=== PATIENT | female | born 1940 | race Caucasian/White ===

== ENCOUNTER 2017-08-30 09:46 | Observation (INO) | payer OTHER, BC ==
[~2017-08-30] VITALS: Ht 154.9 cm; Wt 58.7 kg
[~2017-08-30 09:46] MED LIST: ATENOLOL100 MG PO; CALCIUM 600 +1 EAC4 PO; CLARITIN,ALAVAR10 MG PO; FOLIC ACID1 MG PO; HYDROCHLOROTHIA25 MG PO; KLOR-CON 1010 ME1 PO; LEFLUNOMIDE10 MG PO; LEVOTHYROXINE25 MCG PO; METHOTREXATE2.5 MG PO; OXAPROZIN600 MG PO; POTASSIUM GLUCO2 MEQ PO; SIMVASTATIN40 MG PO; TENORMIN25 MG PO; TREXALL5 MG PO
[2017-08-30 10:23] LABS: BASOPHIL (%) 0.7 % (0-1); BASOPHIL COUNT 0.1 K/uL (0-0.1); EOSINOPHIL COUNT 0.2 K/uL (0-0.3); HEMATOCRIT 32.5 % (36.0-46.0); HEMOGLOBIN 10.6 G/DL (11.9-15.5); IMMATURE GRANULOCYTE (%) 0.6 % (0.0-0.7); LYMPHOCYTE (%) 14.7 % (15-42); LYMPHOCYTE COUNT 1.3 K/uL (1.0-2.8); MCH 30.3 PG (29.0-34.0); MCHC 32.6 G/DL (30.0-36.0); MCV 92.9 FL (83-99); MONOCYTE (%) 10.8 % (3-12); NEUTROPHIL (%) 71.2 % (45-76); NEUTROPHIL COUNT 6.3 K/uL (1.8-6.4); PLATELET COUNT 249 K/uL (156-360); WHITE BLOOD COUNT 8.8 K/uL (4.1-10.2)
[2017-08-30 10:28] LABS: INTER. NORMALIZED RATIO 1.2
[2017-08-30 10:31] LABS: PTT 28.2 SEC (25-37)
[2017-08-30 10:39] LABS: CHLORIDE 106 mEq/L (99-109); SODIUM 137 mEq/L (136-147)
[2017-08-30 10:41] LABS: GLUCOSE 129 mg/dL (70-99)
[2017-08-30 10:44] LABS: TROP-I INTERPRETATION NEGATIVE; TROPONIN-I 0.02 ng/mL (0.0-0.30)
[2017-08-30 10:45] LABS: CREATININE 0.9 mg/dL (0.6-1.3); GFR ESTIMATE (CALCULATED) > 59 mL/min/; UREA NITROGEN (BUN) 16 mg/dL (9-23)
[2017-08-30] MEDS ORDERED: PROTONIX40 MG PO (12:15)
[2017-08-30] MEDS ORDERED: ONE DAILY WOME1 EACH PO (12:16)
[2017-08-30] MEDS ORDERED: CALCIUM600 M1 PO (12:17)
[2017-08-30 13:24] LABS: HDL CHOLESTEROL 35 MG/DL (Desirable>=50); LDL CHOLESTEROL 130 mg/dL (Desirable<100); NON-HDL CHOLESTEROL 170 mg/dL (Desirable<160); TOTAL CHOLESTEROL 205 mg/dL (Desirable<200); TRIGLYCERIDES 201 MG/DL (Normal: <150)
[2017-08-30 16:10] VITALS: BP 150/64
[2017-08-30 16:21] LABS: TROP-I INTERPRETATION NEGATIVE; TROPONIN-I 0.02 ng/mL (0.0-0.30)
[2017-08-30 20:27] VITALS: BP 138/59
[2017-08-30 22:55] VITALS: BP 129/61
[2017-08-31 00:07] LABS: TROP-I INTERPRETATION NEGATIVE; TROPONIN-I 0.02 ng/mL (0.0-0.30)
[2017-08-31 04:22] VITALS: BP 130/62
[2017-08-31 07:50] VITALS: BP 138/65
[2017-08-31] MEDS ORDERED: LISINOPRIL5 MG PO (10:43)
[2017-08-31] MEDS ORDERED: ASPIR-LOW81 MG PO (10:43)
[2017-08-31] MEDS ORDERED: ATORVASTATIN CA40 MG PO (10:43)
[2017-08-31] MEDS ORDERED: MAG-OXIDE400 MG PO (11:47)
[2017-08-31 15:04] LABS: HEMOGLOBIN A1c (GLYCOHEMOGLOB) 5.6 % (Below 5.7)
== END 2017-08-31 14:04 | disposition home or self-care (01) ==
LOC: EME 09:46 → EDOF 12:21 → 4SOUTH 12:21 → EDOF 12:21 → ENRESERV 12:22 → 4SOUTH 14:06 → ENPENDDIS 08-31 12:41 → 4SOUTH 08-31 14:04
PROVIDERS: Emergency Medicine; Hospitalist
PROC: B246ZZZ Ultrasonography of Right and Left Heart (ICD-10-PCS; principal; 2017-08-30)
DX: R06.02 Shortness of breath (principal); I10 Essential (primary) hypertension; E78.5 Hyperlipidemia, unspecified; E87.6 Hypokalemia; E83.42 Hypomagnesemia; I35.1 Nonrheumatic aortic (valve) insufficiency; M06.9 Rheumatoid arthritis, unspecified; Z87.11 Personal history of peptic ulcer disease; Z96.659 Presence of unspecified artificial knee joint; Z98.1 Arthrodesis status; Z80.0 Family history of malignant neoplasm of digestive organs; Z80.8 Family history of malignant neoplasm of other organs or systems; Z91.030 Bee allergy status
CPT/HCPCS: 71045; 80048; 80061; 83036; 83735; 83880; 84484; 85025; 85379; 85610; 85730; 93005; 93306; 99281; 99285; G0378; J1650; J7030; S0028